=== PATIENT | female | born 1945 | race Caucasian/White ===

== ENCOUNTER 2018-06-13 12:56 | Emergency (ER) | payer MEDICARE ==
[~2018-06-13] VITALS: Ht 162.6 cm; Wt 104.5 kg
[~2018-06-13 12:56] MED LIST: ASPI-1264 PO; CELE200C PO; NEBI5TAB10 PO; PER10325T PO; VALS1TAB73 PO
[2018-06-13 13:00] VITALS: BP 189/83
[2018-06-13] MEDS ORDERED: METH-360 PO ×2 (16:20→16:27)
[2018-06-13] MEDS ORDERED: TRAM50TA2 PO (16:27)
[2018-06-13] MEDS ORDERED: ketorolac tromethamine 15mg/ml inj. IM ONE (16:40)
== END 2018-06-13 16:56 | disposition home or self-care (01) ==
LOC: ER 12:57
DX: S70.01XA Contusion of right hip, initial encounter (principal); M54.42 Lumbago with sciatica, left side; M54.41 Lumbago with sciatica, right side; I10 Essential (primary) hypertension; Z90.710 Acquired absence of both cervix and uterus; Z88.6 Allergy status to analgesic agent; Z88.0 Allergy status to penicillin; Z79.82 Long term (current) use of aspirin; V80.010A Animal-rider injured by fall from or being thrown from horse in noncollision accident, initial encounter; Y93.89 Activity, other specified; Y92.89 Other specified places as the place of occurrence of the external cause; Y99.8 Other external cause status
CPT/HCPCS: 73502; 96372; 99284; J1885

== ENCOUNTER 2019-09-02 07:46 | Emergency (ER) | payer MEDICARE ==
[~2019-09-02] VITALS: Ht 162.6 cm; Wt 91.0 kg
[~2019-09-02 07:46] MED LIST changes: +METH-360 PO
[2019-09-02 08:54] LABS: BASOPHILS # (AUTO) 0.1 X10'3 (0-0.2); BASOPHILS % (AUTO) 0.7 % (0-1); EOSINOPHILS # (AUTO) 0.2 X10'3 (0-0.9); EOSINOPHILS % (AUTO) 1.5 % (0-6); HEMATOCRIT 39.5 % (35.0-45.0); LYMPHOCYTES # (AUTO) 2.7 X10'3 (1.1-4.8); LYMPHOCYTES % (AUTO) 24.6 % (21-51); MEAN CORPUSCULAR HEMOGLOBIN 28.5 PG (27.0-31.0); MEAN CORPUSCULAR HGB CONC 32.9 g/dL (33.0-36.5); MEAN CORPUSCULAR VOLUME 86.6 FL (78-98); MEAN PLATELET VOLUME 10.1 FL (7.4-10.4); MONOCYTES % (AUTO) 9.5 % (2-12); NEUTROPHILS % (AUTO) 63.7 % (42-75); PLATELET COUNT 241 X10'3 (140-440); RED BLOOD COUNT 4.56 X10'6 (4.20-5.60); RED CELL DISTRIBUTION WIDTH 13.5 % (11.5-14.5)
[2019-09-02 09:00] LABS: COLOR,URINE YELLOW (Yellow); GLUCOSE, URINE NEGATIVE (Neg); KETONES,URINE NEGATIVE (Neg); LEUKOCYTE ESTERASE ,URINE SMALL (Neg); NITRITES, URINE NEGATIVE (Neg); OCCULT BLOOD,URINE NEGATIVE (Neg); PH,URINE 5.5 (4.8-8.0); PROTEIN,URINE NEGATIVE (Neg); UROBILINOGEN,URINE 0.2 E.U/dL (0.2-1.0)
[2019-09-02 09:05] LABS: CLARITY,URINE CLOUDY (Clear); UA COLLECTION TYPE CLN CATCH MIDSTREAM
[2019-09-02 09:08] LABS: BACTERIA,URINE 3+ /HPF (Neg); RBC,URINE NONE SEEN /HPF (0-2); SQUAMOUS EPITHELIAL CELL,UR MANY /LPF (FEW); YEAST FEW /HPF (NEGATIVE)
--- NOTE | 2019-09-02 09:10 | NUR ---
Per Lab, Urine rejected for culture.
[2019-09-02 09:25] LABS: ALANINE AMINOTRANSFERASE 27 U/L (12-78); ALBUMIN 3.4 G/DL (3.4-5.0); ALBUMIN/GLOBULIN RATIO 0.9 (1.1-1.5); ALKALINE PHOSPHATASE 75 IU/L (46-116); AMYLASE 10 U/L (25-115); ANION GAP 9 (8-16); ASPARTATE AMINO TRANSFERASE 24 U/L (10-37); BILIRUBIN,TOTAL 0.5 MG/DL (0.1-1.0); BLOOD UREA NITROGEN 13 MG/DL (7-18); BUN/CREATININE RATIO 8.4 (6.6-38.0); CALCIUM 9.4 MG/DL (8.5-10.1); CHLORIDE 103 MMOL/L (99-107); CREATININE 1.54 MG/DL (0.40-0.90); GLUCOSE 138 MG/DL (70-104); LIPASE 76 U/L (73-393); POTASSIUM 3.7 MMOL/L (3.5-5.1); SODIUM 142 MMOL/L (135-145); TOTAL CARBON DIOXIDE 29.7 MMOL/L (24-32); TOTAL PROTEIN 7.3 G/DL (6.4-8.2); eGFR 33 ML/MIN
[2019-09-02] MEDS ORDERED: CefTRIAXone 2gm/D5W 50ml 50 ML IV ONE (09:35)
[2019-09-02] MEDS ORDERED: ONDA4TAB6 PO (10:04)
[2019-09-02] MEDS ORDERED: POLY17PO10 PO (10:04)
[2019-09-02] MEDS ORDERED: CEPH250T PO (10:04)
[2019-09-02 11:46] VITALS: BP 156/63
== END 2019-09-02 11:47 | disposition home or self-care (01) ==
LOC: ER 07:46
DX: K56.0 Paralytic ileus (principal); N39.0 Urinary tract infection, site not specified; R11.2 Nausea with vomiting, unspecified; I10 Essential (primary) hypertension; Z90.710 Acquired absence of both cervix and uterus; Z98.890 Other specified postprocedural states; Z88.0 Allergy status to penicillin; Z72.89 Other problems related to lifestyle; Z79.899 Other long term (current) drug therapy
CPT/HCPCS: 36415; 74176; 80053; 81001; 82150; 83690; 85025; 96365; 99284; J0696

== ENCOUNTER 2019-12-13 11:05 | Emergency (ER) | payer MEDICARE ==
[~2019-12-13] VITALS: Ht 162.6 cm; Wt 104.5 kg
[~2019-12-13 11:05] MED LIST changes: +ONDA4TAB6 PO
--- NOTE | 2019-12-13 11:14 | NUR ---
dr ranjit giron pt stated more bells palsy symptoms
[2019-12-13] MEDS ORDERED: predniSONE 20 mg tablet PO ONE (11:30)
[2019-12-13] MEDS ORDERED: VALA100031 PO (11:35)
[2019-12-13] MEDS ORDERED: PRED20TA PO (11:35)
[2019-12-13] MEDS ORDERED: GENT30OI2 TOP (11:35)
[2019-12-13 11:44] VITALS: BP 164/73
== END 2019-12-13 11:45 | disposition home or self-care (01) ==
LOC: ER 11:05
DX: G51.0 Bell's palsy (principal); R20.0 Anesthesia of skin; R51 Headache; I10 Essential (primary) hypertension; Z90.710 Acquired absence of both cervix and uterus; Z98.890 Other specified postprocedural states; Z88.0 Allergy status to penicillin; Z79.82 Long term (current) use of aspirin; Z79.899 Other long term (current) drug therapy
CPT/HCPCS: 93005; 99283; J7512

== ENCOUNTER 2021-04-22 07:56 | Day surgery (SDC) | payer MEDICARE ==
[2021-04-18 10:36] LABS: BASOPHILS # (AUTO) 0.1 X10'3 (0-0.2); EOSINOPHILS # (AUTO) 0.2 X10'3 (0-0.9); EOSINOPHILS % (AUTO) 1.9 % (0-6); LYMPHOCYTES # (AUTO) 2.5 X10'3 (1.1-4.8); LYMPHOCYTES % (AUTO) 24.9 % (21-51); MEAN CORPUSCULAR HEMOGLOBIN 30.4 PG (27.0-31.0); MEAN CORPUSCULAR HGB CONC 34.1 g/dL (33.0-36.5); MONOCYTES # (AUTO) 0.5 X10'3 (0-0.9); MONOCYTES % (AUTO) 5.5 % (2-12); NEUTROPHILS # (AUTO) 6.6 X10'3 (1.8-7.7); NEUTROPHILS % (AUTO) 66.7 % (42-75); PRE OP HEMATOCRIT 38.9 % (35.0-45.0); PRE OP HEMOGLOBIN 13.3 g/dL (12.0-16.0); PRE OP PLATELET COUNT 231 X10'3 (140-440); RED BLOOD COUNT 4.37 X10'6 (4.20-5.60); RED CELL DISTRIBUTION WIDTH 13.1 % (11.5-14.5)
[2021-04-18 10:45] LABS: ALBUMIN 3.5 G/DL (3.4-5.0); ALBUMIN/GLOBULIN RATIO 0.9 (1.1-1.5); ALKALINE PHOSPHATASE 73 IU/L (46-116); BLOOD UREA NITROGEN 11 MG/DL (7-18); CALCIUM 9.3 MG/DL (8.5-10.1); CHLORIDE 100 MMOL/L (99-107); PRE OP ALT 28 U/L (30-65); PRE OP ANION GAP 5 (8-16); PRE OP AST 17 U/L (10-37); PRE OP BILIRUB, TOTAL 0.4 MG/DL (0.0-1.0); PRE OP GLUCOSE 185 MG/DL (70-104); PRE OP POTASSIUM 3.7 MMOL/L (3.4-5.1); PRE OP SODIUM 136 MMOL/L (135-145); TOTAL CARBON DIOXIDE 31.4 MMOL/L (24-32); TOTAL PROTEIN 7.3 G/DL (6.4-8.2); eGFR 49 ML/MIN
[~2021-04-22] VITALS: Ht 162.6 cm; Wt 96.2 kg
[2021-04-22] VITALS (7 sets, daily range): BP systolic 119–162; BP diastolic 58–89
[~2021-04-22 07:56] MED LIST changes: -ASPI-1264 PO; -CELE200C PO; +CHOL400T32 PO; +DICL50TA8 PO; +DOCUMENT DATE & TIME OF BETA-BLOCKER PO ONE; +GABA300T25 PO; +LACT1CAP65 PO; +LOSA1TAB41 PO; -METH-360 PO; +METO-395 PO; +MULT-1085 PO; -NEBI5TAB10 PO; -ONDA4TAB6 PO; -PER10325T PO; -VALS1TAB73 PO; +clindamycin 600mg/D5W 50ml 50 ML IV ONE; +clindamycin-Cleocin 900mg/D5W 50 ML IV ONE; +famotidine 20mg tablet PO ONE; +ringers solution, lacted 1,000 ML IV SCH
[2021-04-22] MEDS ORDERED: LIDOcaine 1% 30ml preserv. free vial ONE (08:07)
[2021-04-22] MEDS ORDERED: ondansetron/PF 4mg/2ml inj IV PRN (09:45)
[2021-04-22] MEDS ORDERED: labetalol 20mg/4ml (5mg/ml) syringe IV PRN (09:45)
[2021-04-22] MEDS ORDERED: morphine 4 MG/ML inj SYRINge IV PRN (09:45)
[2021-04-22] MEDS ORDERED: meperidine/PF 25mg/ml syringe IV PRN ×3 (09:45)
[2021-04-22] MEDS ORDERED: acetaminophen 1,000mg/100ml IV 100 ML IV PRN (09:45)
[2021-04-22] MEDS ORDERED: proCHLORperazine 10 MG/2 ml inj IV PRN (09:45)
[2021-04-22] MEDS ORDERED: morphine 2 MG/ML inj. syringe IV PRN (09:45)
[2021-04-22] MEDS ORDERED: ringers solution, lacted 1,000 ML IV SCH (09:45)
[2021-04-22] MEDS ORDERED: hydrALAZINE 20mg/ml inj. IV PRN (09:45)
[2021-04-22] MEDS ORDERED: BUPIVAcaine/PF 2.5mg/ml (0.25%) 10ml vial ONE (09:48)
[2021-04-22] MEDS ORDERED: fentaNYL/PF 50MCG/1 ML 2ML syringe ONE (09:59)
[2021-04-22] MEDS ORDERED: midazolam 1 mg/ML 2ml injection ONE (09:59)
[2021-04-22] MEDS ORDERED: propofol inj 20 ML IV ONE (10:24)
--- NOTE | 2021-04-22 10:31 | NUR ---
Received from OR via [facility], accompanied by Anesthesiologist DR ALONSO and report given by Anesthesiologist. PT DROWSY, DENIES PAIN, RIGHT ELBOW/FOREARM W/BIAS IMELDA GOMES. Addendum: 04/22/21 at 1051 by Jenni Branch RN Amended: Links added.
--- NOTE | 2021-04-22 11:41 | NUR ---
PT UP, STEADY ON FEET. D/C INSTRUCTIONS GIVEN AND GONE OVER W/PT WHO VERBALIZED UNDERSTANDING. PT D/CD TO HOME VIA W/C TO PRIVATE VEHICLE W/O INCIDENT. Addendum: 04/22/21 at 1235 by Jenni Branch RN Amended: Links added.
== END 2021-04-22 11:41 | disposition home or self-care (01) ==
LOC: PAS 07:56
PROVIDERS: ATTEND Orthopaedic Surgery Hand Surgery
DX: G56.21 Lesion of ulnar nerve, right upper limb (principal); M17.0 Bilateral primary osteoarthritis of knee; I10 Essential (primary) hypertension; E66.9 Obesity, unspecified; Z68.36 Body mass index [BMI] 36.0-36.9, adult; Z88.0 Allergy status to penicillin; Z79.899 Other long term (current) drug therapy; Z96.651 Presence of right artificial knee joint; Z90.710 Acquired absence of both cervix and uterus; Z98.890 Other specified postprocedural states; Z20.822 Contact with and (suspected) exposure to COVID-19
CPT/HCPCS: 36415; 64718; 80053; 82948; 85025; 93005; J2250; J2704; J3010; J3490; J7030; J7120; U0003; U0005; Z7506; Z7512; A4215; A6449

== ENCOUNTER 2022-10-03 19:22 | Inpatient (IN) | payer MEDICARE, OTHER ==
[~2022-10-03] VITALS: Ht 160 cm; Wt 88.6 kg
[~2022-10-03 19:22] MED LIST changes: +ATOR10TA70 PO; -CHOL400T32 PO; +CHOL400T57 PO; -DICL50TA8 PO; -DOCUMENT DATE & TIME OF BETA-BLOCKER PO ONE; +FURO-149 PO; -GABA300T25 PO; +HYDR-3965 PO; +LEVO-65 PO; +METR-159 PO; -clindamycin 600mg/D5W 50ml 50 ML IV ONE; -clindamycin-Cleocin 900mg/D5W 50 ML IV ONE; -famotidine 20mg tablet PO ONE; -ringers solution, lacted 1,000 ML IV SCH
[2022-10-03 20:27] LABS: BASOPHILS # (AUTO) 0.1 X10'3 (0-0.2); BASOPHILS % (AUTO) 0.5 % (0-1); EOSINOPHILS # (AUTO) 0.3 X10'3 (0-0.9); EOSINOPHILS % (AUTO) 1.5 % (0-6); HEMATOCRIT 38.6 % (35.0-45.0); HEMOGLOBIN 12.8 g/dl (12.0-16.0); LYMPHOCYTES # (AUTO) 3.8 X10'3 (1.1-4.8); LYMPHOCYTES % (AUTO) 19.1 % (21-51); MEAN CORPUSCULAR HEMOGLOBIN 28.9 PG (27.0-31.0); MEAN CORPUSCULAR HGB CONC 33.1 g/dL (33.0-36.5); MEAN CORPUSCULAR VOLUME 87.3 FL (78-98); MEAN PLATELET VOLUME 9.1 FL (7.4-10.4); MONOCYTES # (AUTO) 1.2 X10'3 (0-0.9); MONOCYTES % (AUTO) 5.9 % (2-12); NEUTROPHILS # (AUTO) 14.5 X10'3 (1.8-7.7); PLATELET COUNT 344 X10'3 (140-440); RED BLOOD COUNT 4.42 X10'6 (4.20-5.60); RED CELL DISTRIBUTION WIDTH 13.3 % (11.5-14.5); WHITE BLOOD COUNT 19.8 X10'3 (4.5-11.0)
[2022-10-03 20:52] LABS: ALANINE AMINOTRANSFERASE 22 U/L (12-78); ALBUMIN 3.3 G/DL (3.4-5.0); ALBUMIN/GLOBULIN RATIO 0.8 (1.1-1.5); ALKALINE PHOSPHATASE 57 IU/L (46-116); ANION GAP 14 (8-16); ASPARTATE AMINO TRANSFERASE 17 U/L (10-37); BILIRUBIN,TOTAL 0.6 MG/DL (0.1-1.0); BLOOD UREA NITROGEN 21 MG/DL (7-18); BUN/CREATININE RATIO 11.9 (10.0-20.0); CALCIUM 9.5 MG/DL (8.5-10.1); CHLORIDE 93 MMOL/L (99-107); CREATININE 1.76 MG/DL (0.40-0.90); GLUCOSE 159 MG/DL (70-104); SODIUM 137 MMOL/L (135-145); TOTAL CARBON DIOXIDE 29.8 MMOL/L (24-32); TOTAL PROTEIN 7.4 G/DL (6.4-8.2); eGFR 28 ML/MIN
[2022-10-03 20:56] LABS: POTASSIUM 2.9 MMOL/L (3.5-5.1)
[2022-10-03] MEDS ORDERED: temazepam 15mg capsule PO PRN (21:00)
[2022-10-03] MEDS ORDERED: normal saline 1000ML IV soln IVB ONE (21:05)
[2022-10-03] MEDS ORDERED: normal saline 1000ml 1,000 ML IV ONE (21:05)
[2022-10-03 21:25] LABS: TOTAL CELLS COUNTED 100
[2022-10-03 21:26] LABS: PLATELET ESTIMATE NORMAL; POIKILOCYTOSIS FEW; POLYCHROMASIA FEW
[2022-10-03] MEDS: potassium Cl 40MEQ/1/2NS 520ml 520 ML IV SCH (21:43)
[2022-10-03] MEDS ORDERED: ondansetron/PF 4mg/2ml inj IV PRN (23:05)
[2022-10-03] MEDS ORDERED: acetaminophen 650mg rectal suppository RC PRN (23:05)
[2022-10-03] MEDS ORDERED: morphine 2 MG/ML inj. syringe IV PRN ×2 (23:05)
[2022-10-03] MEDS ORDERED: magnesium hydroxide 30ml (MOM) UD suspension PO PRN (23:05)
[2022-10-03] MEDS ORDERED: mag hydrox/Alum hydrox/simeth 30ml oral suspension PO PRN (23:05)
[2022-10-03] MEDS ORDERED: HYDROcodone/acetaminophen 5mg/325mg tablet PO PRN ×2 (23:05→23:10)
[2022-10-03] MEDS ORDERED: potassium Cl 40MEQ/1/2NS 520ml 520 ML IV PRN (23:05)
[2022-10-03] MEDS ORDERED: ondansetron 4mg rapidly disintigrating tab PO PRN (23:05)
[2022-10-03] MEDS ORDERED: potassium Cl 20 mEq SR tablet PO PRN ×2 (23:05)
[2022-10-03] MEDS ORDERED: bisacodyl 10mg suppository rectal RC PRN (23:05)
[2022-10-03] MEDS ORDERED: magnesium 2GM in 50ml NS 50 ML IV PRN (23:05)
[2022-10-03] MEDS ORDERED: magnesium 4gm in 100ml NS 100 ML IV PRN (23:05)
[2022-10-03] MEDS ORDERED: magnesium Cl slow-release 64mg tablet PO PRN (23:05)
[2022-10-03] MEDS ORDERED: acetaminophen 325mg tablet PO PRN ×2 (23:05)
[2022-10-03] MEDS ORDERED: diphenhydrAMINE 25mg capsule PO PRN (23:05)
[2022-10-03] MEDS ORDERED: diphenhydrAMINE 50 mg/ml inj IV PRN (23:05)
[2022-10-03] MEDS ORDERED: metoprolol tartrate 1mg/ml inj IV PRN (23:10)
[2022-10-03] MEDS ORDERED: nitroGLYCERIN 0.4mg SUBLingual tab SL PRN (23:10)
[2022-10-03] MEDS ORDERED: regadenoson 0.4mg/5ml syringe IV PRN (23:10)
[2022-10-03] MEDS ORDERED: aminophylline 250mg/10ml inj. IV PRN (23:10)
[2022-10-03] MEDS ORDERED: levoFLOXACIN-Levaquin 750MG/D5 150 ML IV SCH (23:10)
[2022-10-03] MEDS: aspirin 81mg, enteric-coated 1 TAB TABLET.DR PO SCH (23:45)
[2022-10-04] VITALS (11 sets, daily range): BP systolic 107–151; BP diastolic 47–77
[2022-10-04 00:03] LABS: HEMOGLOBIN A1C 7.3 % (4.5-6.2)
[2022-10-04 00:09] LABS: CREATINE KINASE 55 U/L (26-192); LIPASE 71 U/L (73-393); MAGNESIUM 1.6 MG/DL (1.5-2.4); PHOSPHORUS 3.7 MG/DL (2.3-4.5)
[2022-10-04 00:15] LABS: APTT 30 SECONDS (22-32); D-DIMER 2.13 MG/L FEU (0-0.50)
[2022-10-04 00:54] LABS: HEMATOCRIT 36.1 % (35.0-45.0); WHITE BLOOD COUNT 18.7 X10'3 (4.5-11.0)
[2022-10-04 00:55] LABS: BASOPHILS # (AUTO) 0.1 X10'3 (0-0.2); BASOPHILS % (AUTO) 0.4 % (0-1); EOSINOPHILS # (AUTO) 0.3 X10'3 (0-0.9); EOSINOPHILS % (AUTO) 1.6 % (0-6); LYMPHOCYTES # (AUTO) 4.1 X10'3 (1.1-4.8); LYMPHOCYTES % (AUTO) 22.1 % (21-51); MEAN CORPUSCULAR HEMOGLOBIN 28.9 PG (27.0-31.0); MEAN CORPUSCULAR HGB CONC 33.4 g/dL (33.0-36.5); MEAN CORPUSCULAR VOLUME 86.5 FL (78-98); MEAN PLATELET VOLUME 9.4 FL (7.4-10.4); MONOCYTES # (AUTO) 1.1 X10'3 (0-0.9); NEUTROPHILS % (AUTO) 69.9 % (42-75); PLATELET COUNT 318 X10'3 (140-440); RED BLOOD COUNT 4.17 X10'6 (4.20-5.60); RED CELL DISTRIBUTION WIDTH 13.1 % (11.5-14.5)
[2022-10-04 01:15] LABS: ALANINE AMINOTRANSFERASE 20 U/L (12-78); ALBUMIN 3.1 G/DL (3.4-5.0); ALBUMIN/GLOBULIN RATIO 0.8 (1.1-1.5); ALKALINE PHOSPHATASE 52 IU/L (46-116); ANION GAP 10 (8-16); ASPARTATE AMINO TRANSFERASE 18 U/L (10-37); BILIRUBIN,TOTAL 0.6 MG/DL (0.1-1.0); BLOOD UREA NITROGEN 19 MG/DL (7-18); BUN/CREATININE RATIO 11.7 (10.0-20.0); CALCIUM 9.1 MG/DL (8.5-10.1); CHLORIDE 94 MMOL/L (99-107); CHOL/HDL RATIO 3.3 (0.00-4.99); CHOLESTEROL 135 MG/DL (0-200); CREATININE 1.63 MG/DL (0.40-0.90); GLUCOSE 144 MG/DL (70-104); HDL CHOLESTEROL 41 MG/DL (35-60); LDL CHOLESTEROL 72 MG/DL (50-100); MAGNESIUM 1.6 MG/DL (1.5-2.4); SODIUM 136 MMOL/L (135-145); TOTAL PROTEIN 6.9 G/DL (6.4-8.2); TRIGLYCERIDES 112 MG/DL (20-135); eGFR 31 ML/MIN
[2022-10-04 01:21] LABS: POTASSIUM 2.6 MMOL/L (3.5-5.1)
--- NOTE | 2022-10-04 01:40 | NUR ---
REPORT CALLED TO FLOOR RN TX TO ROOM [id number] BY NURSE
--- NOTE | 2022-10-04 01:40 | NUR ---
Patient arrived to floor via gurney from the ER. A&O and in no pain at this time. Ambulated SBA to bed. VS taken.
[2022-10-04 02:04] LABS: CLARITY,URINE SLIGHTLY CLOUDY (Clear); COLOR,URINE YELLOW (Yellow); GLUCOSE, URINE NEGATIVE (Neg); KETONES,URINE TRACE mg/dl (Neg); LEUKOCYTE ESTERASE ,URINE NEGATIVE (Neg); NITRITES, URINE NEGATIVE (Neg); OCCULT BLOOD,URINE NEGATIVE (Neg); PH,URINE 5.5 (4.8-8.0); PROTEIN,URINE NEGATIVE (Neg); UROBILINOGEN,URINE 0.2 E.U/dL (0.2-1.0)
[2022-10-04 02:10] LABS: UA COLLECTION TYPE OTHER
[2022-10-04 02:11] LABS: SQUAMOUS EPITHELIAL CELL,UR MODERATE /LPF (FEW)
[2022-10-04 02:15] LABS: URIC ACID CRYSTALS 4+ /HPF (NEGATIVE)
[2022-10-04 02:16] LABS: BACTERIA,URINE NONE SEEN /HPF (Neg); RBC,URINE 0-2 /HPF (0-2); WBC,URINE 0-4 /HPF (0-4)
[2022-10-04] MEDS: potassium Cl 40MEQ/1/2NS 520ml 520 ML IV SCH (03:19)
[2022-10-04] MEDS: potassium Cl 20mEq in NS 1,000 ML IV SCH ×2 (03:26→09:13)
--- NOTE | 2022-10-04 06:50 | NUR ---
Problems reprioritized. Patient report given, questions answered & plan of care reviewed with Graeme PEREZ.
[2022-10-04] MEDS ORDERED: pantoprazole 40mg Tablet.DR PO SCH (07:30)
[2022-10-04] MEDS ORDERED: K and/or MAG REPLACEMENT MC SCH (08:00)
[2022-10-04] MEDS ORDERED: nitroGLYCERIN 0.2mg/hour patch TD SCH (08:00)
[2022-10-04] MEDS ORDERED: metoprolol succinate 25mg (24-HOUR) SR. Tablet PO SCH (08:00)
[2022-10-04] MEDS ORDERED: atorvastatin 20mg tablet PO SCH (08:00)
[2022-10-04] MEDS ORDERED: docusate sod 100mg capsule PO SCH (08:00)
[2022-10-04] MEDS: heparin, porcine 5000 units/ml vial SQ SCH ×2 (10:55)
[2022-10-04] MEDS: aspirin 81mg, enteric-coated 1 TAB TABLET.DR PO SCH (10:55)
--- NOTE | 2022-10-04 16:36 | NUR ---
Initial: Pt admit CP, Acute renal failure, hypokalemia and leukocytosis ruled out sepsis per EMR. Pt admit with an A1c of 7.3% and no prior hx of diabetes in EMR. Per RN discussion with RN, confirms pt has no history of DM. Diabetic education differed due to pending physician diabetes diagnosis. Pt currently on a heart healthy diet with average PO 75% x 2 meals if continues will meet estimated kcal and protein needs. LBM on 10/03 with routine bowel care per EMR. Will continue to monitor. Recommendations 1. continue heart healthy diet 2. monitor need for Carb controlled diet 3. bowel care per physician 4. weekly wts 5. DM diet ed once pt receives diagnosis by physician, A1c 7.3% with hx of DM per EMR. Addendum: 10/04/22 at [address] Amended: Links added. Addendum: 10/04/22 at [address] [facility] has reviewed and approves of above note.
== END 2022-10-04 16:15 | disposition home or self-care (01) | DRG 189 ==
LOC: ER 19:22 → ED HOLD 23:05 → EDBEDREQ 10-04 00:54 → PCU 3S 10-04 01:50
PROVIDERS: ADMIT Family Medicine; ATTEND Internal Medicine
PROC: 4A02XM4 Measurement of Cardiac Total Activity, External Approach (ICD-10-PCS; principal; 2022-10-04)
PROC: 3E073KZ Introduction of Other Diagnostic Substance into Coronary Artery, Percutaneous Approach (ICD-10-PCS; 2022-10-04)
DX: J96.01 Acute respiratory failure with hypoxia (principal); I50.33 Acute on chronic diastolic (congestive) heart failure; N17.9 Acute kidney failure, unspecified; I13.0 Hypertensive heart and chronic kidney disease with heart failure and stage 1 through stage 4 chronic kidney disease, or unspecified chronic kidney disease; E87.6 Hypokalemia; E78.5 Hyperlipidemia, unspecified; D72.829 Elevated white blood cell count, unspecified; R07.2 Precordial pain; E86.0 Dehydration; G89.4 Chronic pain syndrome; N18.9 Chronic kidney disease, unspecified; Z88.0 Allergy status to penicillin; Z90.49 Acquired absence of other specified parts of digestive tract; Z90.710 Acquired absence of both cervix and uterus; Z82.49 Family history of ischemic heart disease and other diseases of the circulatory system; Z99.81 Dependence on supplemental oxygen; Z79.899 Other long term (current) drug therapy
CPT/HCPCS: 36415; 71045; 78452; 80053; 80061; 81001; 82550; 83036; 83605; 83690; 83735; 83880; 84100; 84132; 84443; 84484; 85007; 85025; 85379; 85610; 85730; 87040; 87081; 93005; 93017; 99285; A9500; G0378; J1644; J1956; J2785; J3480; J7030

== ENCOUNTER 2024-04-18 06:09 | Emergency (ER) | payer MEDICARE, OTHER ==
[~2024-04-18] VITALS: Ht 162.6 cm; Wt 91.9 kg
[~2024-04-18 06:09] MED LIST changes: -ATOR10TA70 PO; -FURO-149 PO; -HYDR-3965 PO; -LEVO-65 PO; -METR-159 PO
[2024-04-18 06:19] VITALS: TEMP 98.6
[2024-04-18 06:39] LABS: BILIRUBIN,URINE NEGATIVE (Neg); CLARITY,URINE CLEAR (Clear); COLOR,URINE YELLOW (Yellow); GLUCOSE, URINE NEGATIVE (Neg); KETONES,URINE NEGATIVE (Neg); LEUKOCYTE ESTERASE ,URINE NEGATIVE (Neg); NITRITES, URINE NEGATIVE (Neg); OCCULT BLOOD,URINE NEGATIVE (Neg); PROTEIN,URINE NEGATIVE (Neg); UROBILINOGEN,URINE 0.2 E.U/dL (0.2-1.0)
[2024-04-18 06:40] LABS: UA COLLECTION TYPE CLN CATCH MIDSTREAM
[2024-04-18 07:09] LABS: BASOPHILS # (AUTO) 0.2 X10'3 (0-0.2); BASOPHILS % (AUTO) 1.1 % (0-1); EOSINOPHILS # (AUTO) 0.2 X10'3 (0-0.9); EOSINOPHILS % (AUTO) 1.2 % (0-6); HEMATOCRIT 39.5 % (35.0-45.0); HEMOGLOBIN 13.3 g/dl (12.0-16.0); LYMPHOCYTES # (AUTO) 3.3 X10'3 (1.1-4.8); LYMPHOCYTES % (AUTO) 22.5 % (21-51); MEAN CORPUSCULAR HEMOGLOBIN 29.1 PG (27.0-31.0); MEAN CORPUSCULAR HGB CONC 33.6 g/dL (33.0-36.5); MEAN CORPUSCULAR VOLUME 86.6 FL (78-98); MONOCYTES # (AUTO) 0.8 X10'3 (0-0.9); MONOCYTES % (AUTO) 5.8 % (2-12); NEUTROPHILS # (AUTO) 10.1 X10'3 (1.8-7.7); NEUTROPHILS % (AUTO) 69.4 % (42-75); PLATELET COUNT 279 X10'3 (140-440); RED BLOOD COUNT 4.56 X10'6 (4.20-5.60); WHITE BLOOD COUNT 14.6 X10'3 (4.5-11.0)
[2024-04-18 07:28] LABS: ALANINE AMINOTRANSFERASE 23 U/L (12-78); ALBUMIN 3.4 G/DL (3.4-5.0); ALBUMIN/GLOBULIN RATIO 0.8 (1.1-1.5); ALKALINE PHOSPHATASE 74 IU/L (46-116); ANION GAP 8 (8-16); ASPARTATE AMINO TRANSFERASE 19 U/L (10-37); BILIRUBIN,TOTAL 0.5 MG/DL (0.1-1.0); BLOOD UREA NITROGEN 14 MG/DL (7-18); BUN/CREATININE RATIO 13.3 (10.0-20.0); CALCIUM 9.4 MG/DL (8.5-10.1); CHLORIDE 100 MMOL/L (99-107); CREATININE 1.05 MG/DL (0.40-0.90); GLUCOSE 191 MG/DL (70-104); LIPASE 28 U/L (16-77); POTASSIUM 3.8 MMOL/L (3.5-5.1); SODIUM 138 MMOL/L (135-145); TOTAL CARBON DIOXIDE 29.8 MMOL/L (24-32); TOTAL PROTEIN 7.6 G/DL (6.4-8.2); eCRCL 39 ML/MIN; eGFR 51 ML/MIN
[2024-04-18] MEDS ORDERED: PRED20TA PO (11:00)
[2024-04-18] MEDS: ketorolac trometh 15mg/ml vial 15 MG/ML ML IM ONE (11:10)
[2024-04-18] MEDS: dexamethasone sod phosphate 10mg/ml inj IM STA (11:11)
[2024-04-18 11:15] VITALS: BP 148/98; PULSE 68; RESP 15; O2SAT 98
== END 2024-04-18 11:17 | disposition home or self-care (01) ==
LOC: ER 06:10
DX: M54.17 Radiculopathy, lumbosacral region (principal); M51.360 Other intervertebral disc degeneration, lumbar region with discogenic back pain only; I10 Essential (primary) hypertension; Z88.0 Allergy status to penicillin; Z90.49 Acquired absence of other specified parts of digestive tract; Z90.710 Acquired absence of both cervix and uterus
CPT/HCPCS: 36415; 72131; 80053; 81003; 83690; 85025; 96372; 99285; J1100; J1885